=== PATIENT | female | born 1940 ===

== ENCOUNTER 2019-12-27 05:24 | Emergency (ER) | payer MEDICARE ==
[~2019-12-27] VITALS: Ht 154.9 cm; Wt 51.0 kg
[2019-12-27] MEDS ORDERED: AMIODARONE HCL 50 MG/ML 3 ML VIAL IV ONE (05:26)
[2019-12-27] MEDS ORDERED: MAGNESIUM SULF/STERILE WATER 4 GM/100 ML IV BAG IV ONE ×2 (05:26)
[2019-12-27] MEDS ORDERED: SODIUM BICARBONATE [ADULT] 8.4% 50 MEQ/50 ML SYRINGE IVP ONE (05:26)
[2019-12-27] MEDS ORDERED: DOPamine HCL/D5W 400 MG/250 ML IV BAG IV ONE (05:26)
[2019-12-27] MEDS ORDERED: 0.9% SODIUM CHLORIDE 1,000 ML BAG IV ONE (05:26)
[2019-12-27] MEDS ORDERED: CALCIUM CHLORIDE 100 MG/ML 10 ML SYRINGE IVP ONE (05:26)
[2019-12-27] MEDS ORDERED: EPINEPHrine 1:10,000 [1 MG/10 ML] SYRINGE IVP ONE ×2 (05:26)
[2019-12-27] MEDS ORDERED: LIDOCAINE/PF 2% 5 ML SYRINGE IVP ONE (05:26)
[2019-12-27] MEDS ORDERED: ATROPINE SULFATE 0.1 MG/ML 10 ML SYRINGE IVP ONE (05:26)
[2019-12-27] MEDS ORDERED: NOREPINEPHRINE 4 MG/D5%-WATER 250 ML IV PRN (06:15)
[2019-12-27] MEDS ORDERED: PIPERACILLIN/TAZO 3.375 GM/D5W 50 ML IV ONE (06:45)
[2019-12-27] MEDS ORDERED: VANCOMYCIN HCL 1 GM/D5% WATER 200 ML IV ONE (06:45)
[2019-12-27 07:14] LABS: MEAN CORPUSCULAR HEMOGLOBIN 30.1 pg (26.0-34.0); MEAN CORPUSCULAR HGB CONC 28.9 G/dL (31.0-37.0); MEAN CORPUSCULAR VOLUME 104 fL (80-100); PLATELET COUNT (AUTO) 142 K/uL (150-450); RED BLOOD CELL COUNT(AUTO) 1.95 MIL/uL (4.00-5.20); RED CELL DISTRIBUTION WIDTH 23.1 % (11.5-14.5)
[2019-12-27 07:25] LABS: HEMATOCRIT 20.3 % (36-46); HEMOGLOBIN 5.9 g/dL (12.0-16.0)
[2019-12-27 07:26] LABS: TROPONIN I 0.7 ng/mL (0.00-0.05)
[2019-12-27 07:30] LABS: B-TYPE NATRIURETIC PEPTIDE 137 pg/mL (0-100)
[2019-12-27 07:33] VITALS: BP 0/0
[2019-12-27 07:45] LABS: ALANINE AMINOTRANSFERASE 824 U/L (12-78); ALBUMIN 0.9 g/dL (3.4-5.0); ALKALINE PHOSPHATASE 266 U/L (46-116); ANION GAP 25 mmol/L (8-16); BILIRUBIN,TOTAL 2.1 mg/dL (0.1-1.0); CALCIUM, TOTAL 7.6 mg/dL (8.8-10.5); CHLORIDE 116 mmol/L (98-107); CREATINE KINASE, TOTAL ONLY 721 U/L (26-192); CREATININE 3.07 mg/dL (0.60-1.30); GLOMERULAR FILTR. RATE CALC 15 mL/min (>60); POTASSIUM 5.3 mmol/L (3.5-5.1); SODIUM SERUM 148 mmol/L (136-145); THYROID STIMULATING HORMONE 5.12 uIU/mL (0.36-3.74); TOTAL PROTEIN, SERUM 2.6 g/dL (6.4-8.2); UREA NITROGEN, BLOOD 26 mg/dL (7-18)
[2019-12-27 07:47] LABS: INR 2.5 (0.9-1.1); PROTHROMBIN TIME 25.3 SEC (9.4-11.6)
[2019-12-27 07:49] LABS: ASPARTATE AMINOTRANSFERASE 1731 U/L (15-37)
[2019-12-27 07:53] LABS: CARBON DIOXIDE 7 mmol/L (22-29); GLUCOSE,RANDOM 33 mg/dL (70-110)
[2019-12-27 07:57] LABS: BAND NEUTROPHILS % (MANUAL) 5 % (0-5); CORRECTED WHITE BLOOD COUNT 15.4 K/uL (4.5-11.0); LYMPHOCYTES % (MANUAL) 23 % (22-44); MONOCYTES % (MANUAL) 4 % (2-9); SEGMENTED NEUTROPHILS % 68 % (40-70)
== END 2019-12-27 10:15 | disposition expired ==
LOC: EMS 05:25
DX: U07.1 COVID-19 (principal); I46.9 Cardiac arrest, cause unspecified; D64.9 Anemia, unspecified; J96.90 Respiratory failure, unspecified, unspecified whether with hypoxia or hypercapnia; B34.9 Viral infection, unspecified
CPT/HCPCS: 31500; 36415; 36556; 71045; 80053; 82140; 82550; 83605; 83735; 83880; 84443; 84484; 85025; 85610; 85730; 86706; 87040; 87077; 87205; 87340; 87635; 92950; 93005; 96365; 99291; 99292; G0480; J0171; J0282; J0461; J1265; J3475; J3490 ×4; J7030; 94002; J3370